=== PATIENT | male | born 1995 | race Caucasian/White ===

== ENCOUNTER 2020-05-10 08:36 | Emergency (ER) | payer SELFPAY ==
[~2020-05-10] VITALS: Ht 175.2 cm; Wt 133.8 kg
[2020-05-10] MEDS ORDERED: ORPHENADRINE 60 MG/2 ML (NORFLEX) AMP (ED ONLY) IM STA (09:12)
--- NOTE | 2020-05-10 09:16 | ED Back Pain ---
General Chief Complaint: Back Problems Stated Complaint: FALL; BACK INJ Nursing Triage Note: Patient reports he has two herniated discs in his lower back, states yesterday his lower back began hurting, states his left leg gave out and he fell, landing on his back. He states has now has severe lower back pain, and left leg weakness. States he feels as though his spine is out of alignment. Nursing Sepsis Screen: No Definite Risk Source of Information: Patient History of Present Illness Date Seen by Provider: May 10, 2020 Time Seen by Provider: 08:39 Initial Comments 24-year-old male presenting with complaints of increased low back pain for the last 2 to 3 days. He states he has a history of herniated disks in his lumbar spine. He was having increased pain the last few days because he had been playing "[employer]" with his and then started having back pain. He denies any direct trauma to his back. He has had feeling that he was off balance and tilted in his low back since then. He has his left leg giving out with walking due to back pain. He has spasms and back pain. He is unsure if his herniated disks are issues in his back are worse or what was causing him to have more trouble with his back. He feels like his spine is out of alignment. He denies any loss of bowel or bladder control. Allergies and Home Medications Allergies Coded Allergies: No Known Drug Allergies (Unverified , 05/10/20) Home Medications Baclofen 10 Mg Tablet, 10 MG PO TID PRN for MUSCLE SPASMS Prescribed by: ALICIA Malave ENYART on 05/10/20 1012 Hydrocodone/Acetaminophen 1 Each Tablet, 1 TAB PO Q8H PRN for PAIN-SEVERE (8-10) Prescribed by: ALICIA Malave ENYART on 05/10/20 1013 Prednisone 20 Mg Tab, 40 MG PO DAILY Prescribed by: ALICIA Malave ENYART on 05/10/20 1012 Patient Home Medication List Home Medication List Reviewed: Yes Review of Systems Constitutional: No chills, No fever EENTM: no symptoms reported Respiratory: no symptoms reported Cardiovascular: no symptoms reported Gastrointestinal: no symptoms reported Genitourinary: no symptoms reported Musculoskeletal: see HPI Skin: no symptoms reported Psychiatric/Neurological: Denies Paresthesia, Denies Weakness Past Malqpkn-Kozurc-Rbrnkp Hx Past Med/Social Hx: Reviewed Nursing Past Med/Soc Hx Patient Social History Recent Infectious Disease Expo: No Past Medical History Surgeries: No Respiratory: No Cardiac: No Neurological: No Genitourinary: No Gastrointestinal: No Musculoskeletal: Yes Back Injury, Chronic Back Pain (herniated lumbar discs) Endocrine: No HEENT: No Cancer: No Psychosocial: No Physical Exam Vital Signs Vital Signs - First Documented 05/10/20 08:39 Temp 36.8 Pulse 80 Resp 18 B/P (MAP) 154/89 (110) Pulse Ox 98 O2 Delivery Room Air Capillary Refill : Less Than 3 Seconds Height, Weight, BMI Height: '" Weight: lbs. oz. kg; 43.00 BMI Method: General Appearance: Mild Distress, Obese HEENT: PERRL/EOMI, Pharynx Normal Neck: Full Range of Motion, Normal Inspection, Non Tender, Supple Cardiovascular: Regular Rate, Rhythm, Normal Peripheral Pulses Respiratory: Chest Non Tender, Lungs Clear, Normal Breath Sounds Gastrointestinal: No Pulsatile Mass, Soft Back: No CVA Tenderness, No Vertebral Tenderness, Other (pain with straight leg raise bilaterally at 20-30 degrees on both sides. He has relief of pain with knee flexion) Extremity: Normal Capillary Refill, No Pedal Edema Neurologic/Psychiatric: Alert, Oriented x3, No Motor/Sensory Deficits, bulk picker II- XII Norm as Tested Skin: Normal Color, Warm/Dry Progress/Results/Core Measures Results/Orders My Orders Orders - ALICIA MOSHER MD Dexamethasone Injection (Decadron Inje (05/10/20 09:12) Orphenadrine Inj (Ed Only) (Norflex Inje (05/10/20 09:12) Lumbar Spine 2 Or 3 View (05/10/20 09:12) Vital Signs/I&O 05/10/20 05/10/20 08:39 10:17 Temp 36.8 Pulse 80 82 Resp 18 16 B/P (MAP) 154/89 (110) 138/78 Pulse Ox 98 100 O2 Delivery Room Air Room Air Blood Pressure Mean: 110 Progress Progress Note #1: Progress Note Dexamethasone 10 mg IM with Norflex 60 mg IM for pain and spasms. Plain films of lumbar spine to look for alignment and spacing. Progress Note #2: Progress Note No acute abnormality on the plain films of the lumbar spine to account for his symptoms. Patient starting to have some improvement in his pain after medications. Counseled on follow-up and return precautions. Advised to continue with steroids and muscle relaxers. Will prescribe a few narcotic pain medicine pills. Counseled that if he wanted to wait and just use the narcotics for helping him sleep at night he could not do that. Otherwise if he was getting relief with just the steroid and muscle relaxers he can just use those. If he wanted to follow-up with the clinic and get established with someone they could continue to work with them and if he needed to see a spine doctor or physical therapy they could help arrange that. Diagnostic Imaging Diagonstic Imaging: Xray Plain Films/CT/US/NM/MRI: other (Lumbar spine) Comments [facility], [place] NAME: [facility] REC#: [id number] PT STATUS: REG ER : 1995 PHYSICIAN: ALICIA MOSHER MD ADMIT DATE: 05/10/20/ER FS Draft Date of Exam:05/10/20 LUMBAR SPINE 2 OR 3 VIEW INDICATION: Low back pain. FINDINGS: Three views. The lumbosacral spine is in good alignment. Body height is well maintained. There is mild narrowing of the L5-S1 disc space. Facets show good alignment with no evidence of pars defect. There are no hypertrophic bony changes. SI joints are symmetrical and normal. IMPRESSION: Mild narrowing of the L5-S1 disc space, otherwise normal lumbosacral spine. Dictated on workstation # [id number] Dict: 05/10/20 0942 Trans: 05/10/20 0947 [id number] [id number] Interpreted by: NIK REDDY MD Electronically signed by: Departure Impression Primary Impression: Strain of lumbar paraspinous muscle Qualified Codes: S39.012A - Strain of muscle, fascia and tendon of lower back, initial encounter Disposition: 01 HOME, SELF-CARE Condition: Stable Departure-Patient Inst. Decision time for Depature: 10:13 Referrals: RUBY ARROYO MD, RICKY D DO NO,LOCAL PHYSICIAN (PCP) Primary Care Physician [facility] [place] Instructions: Muscle Strain ED, Low Back Pain ED, Using Cold for Pain Add. Discharge Instructions: Try alternating ice and heat to your back to help with inflammation. Use the steroids for inflammation and pain. Muscle relaxer to help with spasms and pain in your back. For severe pain and to help you sleep you may take the Hydrocodone/Acetaminophen narcotic pain medicine Check with clinic and establish with a provider for follow up and continued management of your back pain. You may need a CT scan or physical therapy for continued symptoms and management of your back pain/issues. [facility] can be reached at [phone] All discharge instructions reviewed with patient and/or family. Voiced understanding. Scripts Hydrocodone/Acetaminophen (Hydrocodone-Acetamin 5-325 mg) 1 Each Tablet 1 TAB PO Q8H PRN for PAIN-SEVERE (8-10) for 5 Days, #15 TAB 0 Refills Prov: ALICIA MOSHER MD 05/10/20 Baclofen (Baclofen) 10 Mg Tablet 10 MG PO TID PRN for MUSCLE SPASMS for 10 Days, #30 TAB 0 Refills Prov: ALICIA MOSHER MD 05/10/20 Prednisone (Prednisone) 20 Mg Tab 40 MG PO DAILY for back pain/inflammation for 7 Days, #14 TAB 0 Refills Prov: ALICIA MOSHER MD 05/10/20 Work/School Note: Work Release Form Date Seen in the Emergency Department: May 10, 2020 Return to Work: May 11, 2020 Other Restrictions Listed Below: Light duty with no lifting more than 10 pounds for next week. ALICIA MOSHER MD May 10, 2020 09:16
--- NOTE | 2020-05-10 09:47 | Diagnostic Imaging Report ---
INDICATION: Low back pain. FINDINGS: Three views. The lumbosacral spine is in good alignment. Body height is well maintained. There is mild narrowing of the L5-S1 disc space. Facets show good alignment with no evidence of pars defect. There are no hypertrophic bony changes. SI joints are symmetrical and normal. IMPRESSION: Mild narrowing of the L5-S1 disc space, otherwise normal lumbosacral spine. Dictated by: Dictated on workstation # [id number]
[2020-05-10] MEDS ORDERED: PRD20T PO (10:12)
[2020-05-10] MEDS ORDERED: BACL10TA PO (10:12)
[2020-05-10] MEDS ORDERED: ACHD5005 PO (10:12)
[2020-05-10 10:17] VITALS: BP 138/78
== END 2020-05-10 10:17 | disposition home or self-care (01) ==
LOC: ER FS 08:40
DX: S39.012A Strain of muscle, fascia and tendon of lower back, initial encounter (principal); E66.9 Obesity, unspecified; G89.29 Other chronic pain; M54.9 Dorsalgia, unspecified; Z68.41 Body mass index [BMI] 40.0-44.9, adult; Z79.52 Long term (current) use of systemic steroids; Z79.891 Long term (current) use of opiate analgesic; Y93.75 Activity, martial arts
CPT/HCPCS: 72100

== ENCOUNTER 2022-04-30 06:22 | Emergency (ER) | payer SELFPAY ==
[~2022-04-30] VITALS: Ht 172.7 cm; Wt 126.0 kg
[~2022-04-30 06:22] MED LIST: ACHD5005 PO; BACL10TA PO; PRD20T PO
[2022-04-30 06:28] VITALS: BP 154/86
--- NOTE | 2022-04-30 06:42 | ED Back Pain ---
General Chief Complaint: Back Problems Stated Complaint: LOWER BACK PAIN History of Present Illness Date Seen by Provider: Apr 30, 2022 Time Seen by Provider: 06:37 Initial Comments 26-year-old male is here with complaints of acute on chronic low back pain, which began to suddenly hurt last night. Patient states that pain is 10/10, he is unable to sit, and is diaphoretic. Patient states that the injury occurred 4 to 5 years ago when he tried to lift an air conditioner by himself and strained his back. Patient states that he developed herniated disks at that time from that injury. Denies sensory loss in his legs, radiating pain down his legs, saddle anesthesia, fever and chills, recent injury, urine and fecal retention or incontinence. Allergies and Home Medications Allergies Coded Allergies: No Known Drug Allergies (Unverified , 05/10/20) Patient Home Medication List Home Medication List Reviewed: Yes Baclofen (Baclofen) 10 Mg Tablet, 10 MG PO TID PRN for MUSCLE SPASMS Prescribed by: ALICIA MOSHER on 05/10/20 1012 Hydrocodone/Acetaminophen (Hydrocodone-Acetamin 5-325 mg) 1 Each Tablet, 1 TAB PO Q8H PRN for PAIN-SEVERE (8-10) Prescribed by: ALICIA MOSHER on 05/10/20 1013 Prednisone (Prednisone) 20 Mg Tab, 40 MG PO DAILY Prescribed by: ALICIA MOSHER on 05/10/20 1012 Review of Systems Constitutional: no symptoms reported EENTM: no symptoms reported Respiratory: no symptoms reported Cardiovascular: no symptoms reported Gastrointestinal: no symptoms reported Genitourinary: no symptoms reported Musculoskeletal: back pain Skin: no symptoms reported Psychiatric/Neurological: No Symptoms Reported Past Agvbtqs-Bwvawa-Aabtny Hx Patient Social History Tobacco Use?: No Substance use?: No Alcohol Use?: No Pt feels they are or have been: No Immunizations Up To Date COVID19 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 oz. kg; 43.00 BMI Method: General Appearance: No Apparent Distress, WD/WN HEENT: PERRL/EOMI Neck: Full Range of Motion, Normal Inspection, Non Tender, Supple Back: Normal Inspection, No CVA Tenderness, Muscle Spasm, Vertebral Tenderness (present over the L4,L5, S1 areas with bilateral paraspinal muscel spasm), Other (No red flags for cord compression, no saddle anesthesia, straight leg test bilaterally is negative) Neurologic/Psychiatric: Alert, Oriented x3, No Motor/Sensory Deficits, Normal Mood/Affect, vice president diversity II-XII Norm as Tested, Other (Patient is able to ambulate) Skin: Normal Color Progress/Results/Core Measures Results/Orders My Orders Orders - LIN GREENBERG MD Ketorolac Injection (Toradol Injection) (04/30/22 06:45) Cyclobenzaprine Tablet (Flexeril Tablet) (04/30/22 06:44) Medications Given in ED Current Medications Medications Dose Ordered Sig/Hammad Route Start Time Stop Time Status Last Admin Dose Admin Ketorolac Tromethamine 30 mg ONCE ONCE IM 04/30/22 06:45 04/30/22 06:47 DC 04/30/22 06:51 30 MG Vital Signs/I&O 04/30/22 06:28 Temp 37.0 Pulse 84 Resp 18 B/P (MAP) 154/86 (108) Pulse Ox 99 O2 Delivery Room Air Progress Progress Note : Progress Note 1. ACUTE ON CHRONIC LOWER BACK PAIN/ LUMBAR PARASPINAL MUSCLE SPASM: - Reviewed chart and reviewed XR Spine done last year which showed narrowing of the L5-S1 intervertebral space - Toradol im/ Flexeril 5mg STAT in ER -No red flags for cord compression -Advised [id number] Lidoderm patches/Aleve gel capsules, 2 capsules in the morning and 2 capsules at night, with extra strength Tylenol every 4 hours for breakthrough pain. Take medications with food -Prescription given for Flexeril 5 mg [address] after taking this medication -Prescription for 3 tablets of Percocet given, in case of severe pain -Gentle stretching advised, heat application advised -Follow-up with PCP in the next 3 to 7 days for further work-up and outpatient MRI -The patient was seen in the ED, and treated appropriately to presentation at a specific point in time. Patient is informed that there is a possibility that disease and illness can evolve and change in acuity rapidly or slowly after patient is discharged from the ER. Precautionary advice given to the patient for immediate return to ER if symptoms worsen or do not resolve, and to seek emergency care sooner rather than later. Pt also advised on the importance of PCP follow up and compliance with management and follow up plan with PCP and/or specialist, as this is part of the management plan. Pt verbally expressed understanding. Departure Impression Primary Impression: Acute exacerbation of chronic low back pain Additional Impression: Lumbar paraspinal muscle spasm Disposition: HOME, SELF-CARE Condition: Improved Departure-Patient Inst. Referrals: NO,LOCAL PHYSICIAN (PCP/Family) Primary Care Physician Patient Instructions: Low Back Pain in Adults, Low Back Pain ED, Muscle Spasm ED Add. Discharge Instructions: -Advised [id number] Lidoderm patches/Aleve gel capsules, 2 capsules in the morning and 2 capsules at night, with extra strength Tylenol every 4 hours for breakthrough pain. Take medications with food -Prescription given for Flexeril 5 mg [address] after taking this medication -Prescription for 3 tablets of Percocet given, in case of severe pain -Gentle stretching advised, heat application advised -Follow-up with PCP in the next 3 to 7 days for further work-up and outpatient MRI All discharge instructions reviewed with patient and/or family. Voiced understanding. Scripts Oxycodone HCl/Acetaminophen (Percocet 5-325 mg Tablet) 1 Each Tablet 1 TAB PO Q6H for Severe Pain MDD 6 TABS for 7 Days, #3 TAB Prov: LIN GREENBERG MD 04/30/22 Cyclobenzaprine HCl (Cyclobenzaprine HCl) 5 Mg Tablet 5 MG PO TID for 5 Days, #[address] after taking medication Prov: LIN GREENBERG MD 04/30/22 Work/School Note: Work Release Form Date Seen in the Emergency Department: Apr 30, 2022 Return to Work: May 03, 2022 Other Restrictions Listed Below: No heavy lifting LIN GREENBERG MD Apr 30, 2022 06:42
[2022-04-30] MEDS ORDERED: CYCLOBENZAPRINE 10 MG (FLEXERIL) TAB PO STA (06:44)
[2022-04-30] MEDS ORDERED: KETOROLAC 30 MG/ML VIAL IM ONE (06:45)
[2022-04-30] MEDS ORDERED: OXYC1TAB87 PO (07:14)
[2022-04-30] MEDS ORDERED: CYCL5TAB PO (07:14)
== END 2022-04-30 07:30 | disposition home or self-care (01) ==
LOC: EDUNIT# 06:22 → ER FS 06:26
DX: M62.830 Muscle spasm of back (principal); G89.29 Other chronic pain
CPT/HCPCS: 99284